=== PATIENT | female | born 1965 | race Caucasian/White ===

== ENCOUNTER → 2017-01-05 | Outpatient (CLI) | payer MEDICAID ==
[2017-01-05 14:31] LABS: GIARDIA LAMBLIA ANTIGEN NEGATIVE (NEGATIVE)
[2017-01-05 14:32] LABS: CRYPTOSPORIDIUM PARVUM ANTIGEN NEGATIVE (NEGATIVE)
== END ==
LOC: LAB 13:08
PROVIDERS: ATTEND Student in an Organized Health Care Education/Training Program
DX: A09 Infectious gastroenteritis and colitis, unspecified (principal)
CPT/HCPCS: 82270; 87045; 87205; 87328; 87329; 87336; 87427; 87493; 87899